=== PATIENT | female | born 1970 ===

== ENCOUNTER → 2022-09-23 15:46 | Outpatient (CLI) | payer BC, SELFPAY ==
--- NOTE | ~2022-09-23 | MR_ITS ---
EXAMINATION: MR shoulder LT wo con DATE: 09/23/2022 16:36 INDICATION: Torn rotator cuff at the left shoulder with 4 months of pain and limited range of motion TECHNIQUE: Magnetic resonance imaging (MRI) of the left shoulder was performed without intravenous co ntrast. Sequences included axial PD-weighted FS FSE, coronal oblique PD-weighted FS FSE, coronal obli que T2-weighted FS FSE, sagittal PD-weighted FS FSE, and sagittal T1-weighted SE. COMPARISON: None. FINDINGS: Coracoacromial arch: The acromion undersurface is curved in morphology (type II). The coracoacromial ligament is normal. M ild acromioclavicular osteoarthritis. Rotator cuff: The supraspinatus, infraspinatus and teres minor tendons are normal. The subscapularis tendon is norm al. Normal rotator cuff muscle bulk and signal. Biceps tendon, glenoid labrum and glenohumeral cartilage: Long head of the biceps tendon is normal. Glenoid labrum is normal. Glenohumeral cartilage is normal. Fluid: Small amount of fluid in the long head biceps tendon sheath disproportionate to the physiologic amoun t fluid in the glenohumeral joint space consistent with mild bicipital tenosynovitis. No loose osteoc hondral bodies. No abnormal increased fluid in the subacromial/subdeltoid bursa to suggest bursitis. Bones/other: Normal marrow signal with no edema, fracture or abnormal marrow replacing process. There is thickened soft tissue T1 isointense to skeletal muscle and slightly T2 hyperintense at the rotator cuff interv al replacing the normal T1 hyperintense fat. There is also thickening of the glenoid side of the ritu ohumeral capsule at the axillary recess. Both findings can be seen in setting of adhesive capsulitis which nonetheless remains a clinical diagnosis. IMPRESSION: 1. Thickening of the glenohumeral joint capsule at the axillary recess and thickened soft tissue at t he rotator cuff interval, both findings which can be seen with adhesive capsulitis which remains a cl inical diagnosis. 2. Mild bicipital tenosynovitis. 3. Mild acromioclavicular osteoarthritis. Reviewed, dictated and finalized at location [facility]. [facility] IMPRESSION: 1. Thickening of the glenohumeral joint capsule at the axillary recess and thic kened soft tissue at the rotator cuff interval, both findings which can be seen with adhesive capsulitis which remains a clinical diagnosis. 2. Mild bicipital tenosynovitis. 3. Mild acromioclavicular osteoarthritis.
== END ==
DX: S46.012A Strain of muscle(s) and tendon(s) of the rotator cuff of left shoulder, initial encounter (principal); X58.XXXA Exposure to other specified factors, initial encounter; M75.22 Bicipital tendinitis, left shoulder; M19.012 Primary osteoarthritis, left shoulder
CPT/HCPCS: 73221